=== PATIENT | female | born 1965 | race Hispanic/Latino ===

== ENCOUNTER 2018-09-19 04:11 | Emergency (ER) | payer OTHER ==
[2018-09-19] MEDS ORDERED: KETOROLAC TROMETHAMINE 30MG/ML ONE (04:23)
== END 2018-09-19 05:36 | disposition home or self-care (01) ==
LOC: EDH 04:11
DX: M79.672 Pain in left foot (principal); M62.838 Other muscle spasm; M19.90 Unspecified osteoarthritis, unspecified site
CPT/HCPCS: 73630; 96374; 99283; J1885